=== PATIENT | female | born 1990 | race Asian ===

== ENCOUNTER 2017-12-21 03:55 | Inpatient (IN) | payer OTHER ==
[2017-12-21] VITALS (29 sets, daily range): BP systolic 98–157; BP diastolic 58–94; PULSE 74–142; TEMP 98.2–98.6
[~2017-12-21] VITALS: Ht 165.1 cm; Wt 71.4 kg
[~2017-12-21 03:55] MED LIST: MOTRIN 800800 MG/TAB PO; PERCOCET 325 MG1 TA2 PO; PRENATAL1 TA1 PO; SENOKOT S 50 MG1 TAB PO
[2017-12-21] MEDS ORDERED: PRENATAL MVI PO (05:18)
[2017-12-21 05:38] LABS: BASO % 0.3 % (0.0-2.0); EOS # 0.1 (0.0-0.7); EOS % 0.9 % (0-4.0); GRAN # 5.4 (1.4-6.5); GRAN % 61.6 % (42.2-75.2); HEMATOCRIT 33.1 % (37.0-47.0); HEMOGLOBIN 10.6 g/dl (12.5-16.0); LYMPH # 2.5 (1.2-3.4); LYMPH % 28.9 % (20.0-51.0); MEAN CELL VOLUME 75 fl (80.0-100.0); MEAN CORPUSCULAR HEMOGLOBIN 24 pg (27.0-31.0); MEAN CORPUSCULAR HGB CONC 32 g/dl (33.0-37.0); MEAN PLATELET VOLUME 11.2 fl (7.4-10.4); MONO # 0.6 (0.1-0.6); MONO % 7.3 % (1.7-9.3); PLATELET COUNT 307 K/mm3 (130-400); RED BLOOD COUNT 4.41 M/mm3 (4.10-5.30); REDCELL DISTRIBUTION WIDTH-CV 15.1 % (11.5-14.5)
[2017-12-22 05:15] VITALS: BP 113/75; PULSE 72; TEMP 98.3
[2017-12-22 07:50] VITALS: BP 120/72; PULSE 88; TEMP 97.7
[2017-12-22 19:45] VITALS: BP 136/82; PULSE 89; TEMP 98.4
[2017-12-23 07:00] VITALS: BP 107/71; PULSE 73; TEMP 97.8
[2017-12-23] MEDS ORDERED: IBU800 M1 PO (11:43)
[2017-12-23] MEDS ORDERED: PERCOCET 325 MG1 TA2 PO (11:44)
== END 2017-12-23 17:00 | disposition home or self-care (01) | DRG 775 ==
LOC: LDRO 03:55 → OB 04:38 → LDR 04:38 → LDRO 04:59 → OB 13:00
PROVIDERS: Obstetrics & Gynecology
PROC: 10E0XZZ Delivery of Products of Conception, External Approach (ICD-10-PCS; principal; 2017-12-21)
PROC: 0KQM0ZZ Repair Perineum Muscle, Open Approach (ICD-10-PCS; 2017-12-21)
DX: O70.1 Second degree perineal laceration during delivery (principal); Z37.0 Single live birth; O24.420 Gestational diabetes mellitus in childbirth, diet controlled; Z3A.40 40 weeks gestation of pregnancy; O71.82 Other specified trauma to perineum and vulva; E21.0 Primary hyperparathyroidism
CPT/HCPCS: J2590; J3010; J7120